=== PATIENT | male | born 1970 | race Caucasian/White ===

== ENCOUNTER 2019-09-01 21:05 | Inpatient (IN) | payer SELFPAY ==
[2019-09-01] MEDS ORDERED: LORAZEPAM INJ 2 MG/1 ML VIAL IV ONE (21:33)
[2019-09-01] MEDS ORDERED: NORMAL SALINE 1000 ML 1,000 ML IV ONE (21:36)
--- NOTE | 2019-09-01 21:52 | ER Document Report ---
Entered by JOSE FERNANDO SCRIBE 09/01/192123 Acting as scribe for:SAMUEL SOUTH IV, MD ED General - General Chief Complaint: Altered Mental Status Stated Complaint: ALTERED MENTAL STATUS Time Seen by Provider: 09/01/19 21:21 Mode of Arrival: Medic Information source: Emergency Med Personnel Notes: This 49 year old male patient brought in by EMS from [facility] presents to the ED today with complaints of altered mental status that occurred just prior to arrival. Per ED nurse, EMS reports that the patient received 5 mg Haldol, 2 mg Ativan, and 25 mg Benadryl at 1620 today. ED nurse also reports that the staff at [facility] are concerned about the patient's abdominal hernia. Patient denies any pain. Patient was transferred to [facility] on IVC paperwork per Shaka Mayo, [facility]. Patient reportedly tested positive for amphetamine in triage at [facility] yesterday. According to Maria Esther, the patient has a past medical history of methamphetamine psychosis, ETOH abuse, and seizures (last 10+ years ago). Patient's medications include Keppra, Topamax, and blood pressure medications. - Related Data Allergies/Adverse Reactions: No Known Allergies Allergy (Unverified 09/01/19 21:22) Past Medical History - General Information source: [facility] Records - Social History Smoking Status: Current Every Day Smoker Cigarette use (# per day): Yes Chew tobacco use (# tins/day): No Smoking Education Provided: No Frequency of alcohol use: Heavy Drug Abuse: Methamphetamine Family History: Reviewed & Not Pertinent Patient has suicidal ideation: No Patient has homicidal ideation: No Review of Systems - Review of Systems Constitutional: No symptoms reported EENT: No symptoms reported Cardiovascular: No symptoms reported Respiratory: No symptoms reported Gastrointestinal: No symptoms reported Genitourinary: No symptoms reported Male Genitourinary: No symptoms reported Musculoskeletal: See HPI. denies: Muscle pain Skin: No symptoms reported Hematologic/Lymphatic: No symptoms reported Neurological/Psychological: See HPI, Other - Altered mental status -: Yes All other systems reviewed and negative Physical Exam - Vital signs Vitals: Temp 99.1 F 09/01/19 21:16 - General General appearance: Alert, Other - Confused In distress: None - Respiratory Respiratory status: No respiratory distress Chest status: Nontender Breath sounds: Normal Chest palpation: Normal - Cardiovascular Rhythm: Regular, Tachycardia Heart sounds: Normal auscultation Murmur: No Friction rub: No Gallop: None auscultated - Abdominal Inspection: Healed incision - Well healed midline abdominal incision noted, Other - Hernia noted to midline, nontender to palpation and normal bowel sounds auscultated Distension: No distension Bowel sounds: Normal Tenderness: Nontender - Abdomen soft Organomegaly: No organomegaly - Back Back: Normal, Nontender - Extremities General upper extremity: Normal inspection General lower extremity: Normal inspection - Neurological Neuro grossly intact: Yes - Psychological Associated symptoms: Confused - Skin Skin Temperature: Warm - to the touch Skin Moisture: Dry Skin Color: Normal Course - Vital Signs Vital signs: Temp Pulse Resp BP Pulse Ox 99.1 F 122 H 16 183/146 H 100 09/01/19 21:21 09/01/19 21:21 09/01/19 23:05 09/01/19 23:05 09/01/19 23:05 - Laboratory Result Diagrams: 09/01/19 21:40 09/01/19 21:40 Laboratory results interpreted by me: 09/01/19 09/01/19 09/01/19 21:40 21:40 21:40 RBC 3.70 L Hgb 12.6 L Hct 36.9 L MCV 100 H MCH 34.2 H RDW 14.8 H Plt Count 60 L [place] % (Auto) 18.0 H Potassium 3.2 L Glucose 156 H Total Bilirubin 2.8 H Direct Bilirubin 1.3 H AST 142 H ALT 70 H Alkaline Phosphatase 143 H Ammonia 54.6 H Salicylates < 1.0 L Acetaminophen < 10 L - Diagnostic Test Radiology reviewed: Reports reviewed - EKG Interpretation by Me Additional EKG results interpreted by me: 09/02/19 00:22 EKG obtained on 09/01/2019 at 2147 hrs. was interpreted by this MD. Findings: Sinus tachycardia, rate 112, normal axis, P waves proceed QRS complexes, QRS complexes appear narrow, there are no obvious patterns of ST segment elevation or depression present to suggest acute myocardial ischemia or infarction. Impression: Sinus tachycardia with nonspecific ST segments. - Consults dr. razia valdez Time consulted: 00:50 - dr. valdez agreed to admit the patient. he also ordered 10 mg valium iv and 50 mg atenolol po be given now to treat potential symptoms of alcohol withdrawal Reason for consultation: 09/02/19 00:51 ams, elevated ammonia level Consulted provider: will see as inpatient Discharge - Discharge Clinical Impression: Hyperammonemia Alcohol withdrawal Qualifiers: Complication of substance-induced condition: with delirium Qualified Code(s): F10.231 - Alcohol dependence with withdrawal delirium Condition: Good Disposition: ADMITTED INPATIENT Admitting Provider: Harman (Hospitalist) Unit Admitted: Medical Floor I personally performed the services described in the documentation, reviewed and edited the documentation which was dictated to the scribe in my presence, and it accurately records my words and actions.
[2019-09-01 22:23] LABS: ABSOLUTE BASOPHILS # (AUTO) 0.1 10^3/uL (0.0-0.2); ABSOLUTE EOSINOPHILS # (AUTO) 0.1 10^3/uL (0.0-0.6); ABSOLUTE LYMPHOCYTES (AUTO) 0.8 10^3/uL (0.5-4.7); ABSOLUTE NEUT (AUTO) 3.5 10^3/uL (1.7-8.2); BASOPHILS % (AUTO) 1.1 % (0-2); HEMATOCRIT 36.9 % (37.9-51.0); HEMOGLOBIN 12.6 g/dL (13.5-17.0); LYMPHOCYTES % (AUTO) 15.3 % (13-45); MEAN CORPUSCULAR HEMOGLOBIN 34.2 pg (27.0-33.4); MEAN CORPUSCULAR HGB CONC 34.3 g/dL (32.0-36.0); MEAN CORPUSCULAR VOLUME 100 fl (80-97); RED CELL DISTRIBUTION WIDTH 14.8 % (11.5-14.0); SEGMENTED NEUTROPHILS % (AUTO) 64.6 % (42-78); TOTAL CELLS COUNTED % (AUTO) 100 %; WHITE BLOOD COUNT 5.4 10^3/uL (4.0-10.5)
[2019-09-01] MEDS ORDERED: DIPHENHYDRAMINE HCL 50 MG/ML VIAL IV ONE (22:24)
[2019-09-01] MEDS ORDERED: HALOPERIDOL LACTATE INJ 5 MG/1 ML VIAL IM ONE (22:25)
[2019-09-01 22:26] LABS: ALBUMIN 3.5 g/dL (3.5-5.0); ALKALINE PHOSPHATASE 143 U/L (38-126); ANION GAP 10 (5-19); ASPARTATE AMINO TRANSFERASE 142 U/L (17-59); BILIRUBIN,DIRECT 1.3 mg/dL (0.0-0.4); BILIRUBIN,TOTAL 2.8 mg/dL (0.2-1.3); BLOOD UREA NITROGEN 11 mg/dL (7-20); CALCIUM 9.3 mg/dL (8.4-10.2); CARBON DIOXIDE 22 mmol/L (22-30); CHLORIDE 105 mmol/L (98-107); GLUCOSE 156 mg/dL (75-110); POTASSIUM 3.2 mmol/L (3.6-5.0); TOTAL PROTEIN 7.6 g/dL (6.3-8.2)
[2019-09-01 22:27] LABS: ACETAMINOPHEN < 10 ug/mL (10-30); ALCOHOL < 10 mg/dL (NONE DETECTED); SALICYLATE < 1.0 mg/dL (2.0-20.0)
[2019-09-01 22:40] LABS: PLATELET COUNT 60 10^3/uL (150-450)
[2019-09-01] MEDS ORDERED: LACTULOSE SYRUP 20 GM/30 ML UDCUP PO ONE (23:40)
--- NOTE | 2019-09-02 00:07 | RADIOLOGY REPORT (SQ) ---
EXAM DESCRIPTION: CT HEAD WITHOUT IV CONTRAST COMPLETED DATE/TME: 09/01/2019 21:34 CLINICAL HISTORY: 49 years, Male, ams COMPARISON: None. TECHNIQUE: 199 Images stored on PACS. All CT scanners at this facility use dose modulation, iterative reconstruction, and/or weight based dosing when appropriate to reduce radiation dose to as low as reasonably achievable (ALARA). [facility]: Dose Right [facility]: CareDose [facility]: Dose Right [facility]: Teradose 4D [facility]: [employer] LIMITATIONS: None. FINDINGS: The globes are intact. The paranasal sinuses and mastoid air cells are well aerated. No displaced or depressed skull fracture. No intra or extra-axial hemorrhage. CT is limited for evaluation of acute infarct. No CT evidence for large or territorial acute infarct. No mass. No midline shift IMPRESSION: No acute intracranial abnormality TECHNICAL DOCUMENTATION: Quality ID # 436: Final reports with documentation of one or more dose reduction techniques (e.g., Automated exposure control, adjustment of the mA and/or kV according to patient size, use of iterative reconstruction technique) copyright 2011 [employer]- All Rights Reserved
--- NOTE | 2019-09-02 00:07 | RADIOLOGY REPORT (SQ) ---
AP Portable chest: 09/01/2019 11:05 PM CDT History: 49-year old patient with altered mental status. Comparison: None available Findings: The cardiomediastinal silhouette is enlarged. No pneumothorax is seen. No discrete pleural effusion is apparent. No acute airspace opacities are seen. Mild interstitial prominence is seen. Impression: There is mild interstitial prominence which may reflect developing edema.
[2019-09-02] MEDS ORDERED: DIAZEPAM INJ 10 MG/2 ML DISP.SYRIN IV ONE (00:49)
[2019-09-02] MEDS ORDERED: ATENOLOL 50 MG TABLET PO ONE (00:49)
[2019-09-02 01:14] LABS: APPEARANCE,URINE CLEAR; BILIRUBIN,URINE NEGATIVE (NEGATIVE); COLOR,URINE AMBER; GLUCOSE, URINE NEGATIVE (NEGATIVE); KETONES,URINE NEGATIVE (NEGATIVE); PROTEIN,URINE NEGATIVE (NEGATIVE); URINE SPECIFIC GRAVITY 1.015
[2019-09-02] MEDS ORDERED: LEVALBUTEROL HCL NEB 0.63 MG/3 ML AMPUL NEB PRN (01:20)
[2019-09-02] MEDS ORDERED: MAG HYDROX/AL HYDROX/SIMETH SUSP 30 ML UDCUP PO PRN (01:20)
[2019-09-02] MEDS ORDERED: MAGNESIUM HYDROXIDE SUSP 30 ML UDCUP PO PRN (01:20)
[2019-09-02] MEDS ORDERED: DIAZEPAM INJ 10 MG/2 ML DISP.SYRIN IV PRN (01:25)
[2019-09-02] MEDS ORDERED: NICOTINE 21 MG/24 HR PATCH.TD24 TD PRN (01:25)
[2019-09-02] MEDS ORDERED: GUAIFENESIN SYRP 200 MG/10 ML UDC PO PRN (01:25)
--- NOTE | 2019-09-02 02:53 | PDOC H&P ---
History of Present Illness Admission Date/PCP: 09/02/2019 00:49 No local PCP Patient complains of: Altered mental status History of Present Illness: RAF HOOK is a 49 year old male who presented to the emergency room via EMS from the [facility] due to altered mental status beginning a few hours prior to his emergency room presentation. Patient was given Haldol, Ativan and Benadryl at [facility] without improvement resulting in his transfer to the emergency room. Patient was placed at [facility] from [facility] with IVC paperwork. Upon his arrival at [facility] his urine tested positive for amphetamine. Patient is currently agitated, confused and actively hallucinating thus being unable to contribute to his medical care. The patient has a known methamphetamine abuse history as well as a severe alcohol and tobacco abuse/addiction history. Patient reportedly had a seizure more than 10 years ago under uncertain circumstances. In the emergency room the patient was found to be confused and agitated with obvious acute hallucinations. His serum ammonia was 54 with elevated LFTs and his heart rate was 115 with an elevated blood pressure. CT scan of his head was unremarkable as was remainder of his evaluation. He was subsequently admitted to the hospital for further evaluation and treatment. Past Medical History Past Medical History: Patient is unable to provide historical input for his medical record therefore the information presented here is obtained from the best available reliable source. Cardiac Medical History: Reports: Hypertension Pulmonary Medical History: Reports: Other - No available history EENT Medical History: Reports: Other - No available history Neurological Medical History: Reports: Seizures, Other Endocrine Medical History: Reports: Other - No available history Renal/ Medical History: Reports: Other - No available history Malignancy Medical History: Reports: Other - No available history GI Medical History: Reports: Other - No available history Musculoskeltal Medical History: Reports: Other - No available history Skin Medical History: Reports: None Psychiatric Medical History: Reports: Alcohol Dependency, Substance Abuse, To bacco Dependency Traumatic Medical History: Reports: Other - No available history Hematology: Reports: Other - No available history Infectious Medical History: Reports: Other Past Surgical History Past Surgical History: Patient is unable to provide historical input for his medical record therefore the information presented here is obtained from the best available reliable source. Past Surgical History: Reports: None Social History Information Source: Emergency Med Personnel, [facility] Records, Outside Facility Records Lives with: Other - [facility] Smoking Status: Current Every Day Smoker Electronic Cigarette use?: No Frequency of Alcohol Use: Heavy Hx Recreational Drug Use: Yes Drugs: Other Hx Prescription Drug Abuse: No Past Social History Note: Patient is unable to provide historical input for his medical record therefore the information presented here is obtained from the best available reliable sour ce. - Advance Directive Resuscitation Status: Full Code Surrogate healthcare decision maker:: Kelsey Hook Family History Family History: Other - Unable to obtain Family History: Patient is unable to provide historical input for his medical record therefore the information presented here is obtained from the best available reliable source. Parental Family History Reviewed: No Children Family History Reviewed: No Sibling(s) Family History Reviewed.: No Medication/Allergy Allergies/Adverse Reactions: No Known Allergies Allergy (Unverified 09/01/19 21:22) Review of Systems ROS unobtainable: Due to mental status - Patient is unable to provide input for his medical record due to his acute alcohol withdrawal with psychosis Physical Exam Vital Signs: Temp Pulse Resp BP Pulse Ox 99.1 F 122 H 16 183/146 H 100 09/01/19 21:21 09/01/19 21:21 09/01/19 23:05 09/01/19 23:05 09/01/19 23:05 Intake & Output 08/31/19 09/01/19 09/02/19 23:59 23:59 23:59 Intake Total 1000 Balance 1000 Weight 80.739 kg General appearance: PRESENT: no acute distress - After receiving 10 mg of Valium IV in the ER just prior to my evaluation, disheveled, other - Detached from current situation Head exam: PRESENT: atraumatic, normocephalic Eye exam: PRESENT: conjunctiva pink. ABSENT: conjunctival injection, scleral icterus Ear exam: PRESENT: normal external ear exam. ABSENT: bleeding, drainage Mouth exam: PRESENT: dry mucosa, neck supple Neck exam: ABSENT: thyromegaly, tracheal deviation Respiratory exam: PRESENT: clear to auscultation jose carlos, symmetrical, unlabored Cardiovascular exam: PRESENT: RRR, tachycardia. ABSENT: clicks, gallop, rubs Pulses: PRESENT: normal radial pulses, normal dorsalis pedis pul Vascular exam: PRESENT: normal capillary refill. ABSENT: pallor GI/Abdominal exam: PRESENT: normal bowel sounds, organolmegaly - Hepatomegaly noted on less than optimal exam, soft Rectal exam: PRESENT: deferred Extremities exam: ABSENT: joint swelling, pedal edema Musculoskeletal exam: ABSENT: deformity, dislocation Neurological exam: PRESENT: altered - Confused and agitated, other - Actively experiencing visual hallucinations, mild fine peripheral tremor Psychiatric exam: PRESENT: agitated, other - Confused and actively hallucinating Focused psych exam: PRESENT: psychomotor agitation, restlessness, other - Visual hallucination Skin exam: PRESENT: dry, intact, warm. ABSENT: jaundice, rash, urticaria Results Laboratory Results: 09/01/19 21:40 09/01/19 21:40 09/01/19 09/01/19 09/01/19 21:40 21:40 21:40 WBC 5.4 RBC 3.70 L Hgb 12.6 L Hct 36.9 L MCV 100 H MCH 34.2 H MCHC 34.3 RDW 14.8 H Plt Count 60 L Seg Neutrophils % 64.6 Sodium 137.0 Potassium 3.2 L Chloride 105 Carbon Dioxide 22 Anion Gap 10 BUN 11 Creatinine 0.64 Est GFR ( Amer) > 60 Glucose 156 H Calcium 9.3 Total Bilirubin 2.8 H AST 142 H Alkaline Phosphatase 143 H Ammonia 54.6 H Total Protein 7.6 Albumin 3.5 Impressions: Head CT 09/01/19 21:34 IMPRESSION: No acute intracranial abnormality TECHNICAL DOCUMENTATION: Quality ID # 436: Final reports with documentation of one or more dose reduction techniques (e.g., Automated exposure control, adjustment of the mA and/or kV according to patient size, use of iterative reconstruction technique) copyright 2011 [employer]- All Rights Reserved Assessment and Plan - Diagnosis (1) Alcohol withdrawal delirium, acute, mixed level of activity Is this a current diagnosis for this admission?: Yes (2) Hypertension Qualifiers: Hypertension type: essential hypertension Qualified Code(s): I10 - Essential (primary) hypertension Is this a current diagnosis for this admission?: Yes (3) Tachycardia Is this a current diagnosis for this admission?: Yes (4) Visual hallucinations Is this a current diagnosis for this admission?: Yes (5) Alcoholic liver disease, unspecified Is this a current diagnosis for this admission?: Yes (6) Hepatic encephalopathy Is this a current diagnosis for this admission?: Yes (7) Polysubstance abuse Is this a current diagnosis for this admission?: Yes (8) Seizure disorder Is this a current diagnosis for this admission?: Yes - Plan Summary Summary: Patient be admitted to the medical floor where he will receive routine supportive and symptomatic cares. He will be treated with Valium 10 mg p.o. every 4 hours initially with available Valium 10 mg IV every hour as needed severe tremors/agitation. He will receive Thorazine 25 mg IV every 4 hours as needed for hallucinations. He will be treated with atenolol 50 mg p.o. twice daily. He will also receive thiamine 100 mg daily. His elevated serum ammonia will be treated with lactulose administered orally. He will be treated with a cardiac diet. CBCs, metabolic profiles, liver function studies, ammonia levels and magnesium levels will be obtained as needed. - Time Time Spent with patient: Less than 15 minutes Anticipated discharge: Other - Return to [facility] or other crisis center - Inpatient Certification Based on my medical assessment, after consideration of the patient's comorbidities, presenting symptoms, or acuity I expect that the services needed warrant INPATIENT care.: Yes I certify that my determination is in accordance with my understanding of Medicare's requirements for reasonable and necessary INPATIENT services [42 CFR 412.3e].: Yes Medical Necessity: Need Close Monitoring Due to Risk of Patient Decompensation, Need for Neurological Checks, Risk of Complication if Not Cared For in Hospital
[2019-09-02] MEDS: DIAZEPAM 5 MG TABLET PO SCH ×6 (03:20→23:45)
[2019-09-02 03:21] LABS: URINE BARBITURATES SCREEN NEGATIVE; URINE BENZODIAZEPINES SCREEN NEGATIVE; URINE COCAINE SCREEN NEGATIVE; URINE MARIJUANA (THC) SCREEN NEGATIVE; URINE METHADONE SCREEN NEGATIVE; URINE PHENCYCLIDINE SCREEN NEGATIVE
[2019-09-02 03:34] LABS: URINE AMPHETAMINES SCREEN UNCONFIRMED POSITIVE
[2019-09-02] MEDS: FAMOTIDINE 20 MG TABLET PO SCH ×2 (09:18→21:07)
[2019-09-02] MEDS: DOCUSATE SODIUM 100 MG CAPSULE PO SCH ×2 (09:19→17:07)
--- NOTE | 2019-09-02 10:16 | EKG REPORT ---
SEVERITY:- ABNORMAL ECG - SINUS TACHYCARDIA LVH WITH SECONDARY REPOLARIZATION ABNORMALITY ANTERIOR Q WAVES, POSSIBLY DUE TO LVH : Confirmed by: Abigail Davila MD 02-Sep-2019 10:15:31
--- NOTE | 2019-09-02 15:09 | Progress Note ---
Provider Note Provider Note: Late morning admission by Dr. Hammer overnight. Patient seen and examined Discussed the case with the psychiatrist Dr. Cross The patient will still be under the IVC of his facility for a total of 10 days. He stated we do not need to reinstate this here. He recommended that we try to use Haldol 5 mg IV 3 times daily as needed agitation or we can use Zyprexa if QTC is prolonged however Zyprexa along with benzos may reduce respiratory drive more than other antipsychotics. Psychiatry states that they will take patient back under their care once patient is medically cleared to do so. Continue current interventions. Patient is still somnolent and extremely confused.
[2019-09-03] MEDS: DIAZEPAM 5 MG TABLET PO SCH ×4 (03:45→16:32)
[2019-09-03 06:34] LABS: HEMATOCRIT 36.9 % (37.9-51.0); HEMOGLOBIN 12.8 g/dL (13.5-17.0); MEAN CORPUSCULAR HEMOGLOBIN 34.6 pg (27.0-33.4); MEAN CORPUSCULAR HGB CONC 34.7 g/dL (32.0-36.0); MEAN CORPUSCULAR VOLUME 100 fl (80-97); RED CELL DISTRIBUTION WIDTH 14.6 % (11.5-14.0); WHITE BLOOD COUNT 4.9 10^3/uL (4.0-10.5)
[2019-09-03 06:54] LABS: ALKALINE PHOSPHATASE 110 U/L (38-126); ASPARTATE AMINO TRANSFERASE 101 U/L (17-59); BILIRUBIN,DIRECT 0.9 mg/dL (0.0-0.4); BILIRUBIN,TOTAL 2.6 mg/dL (0.2-1.3); BLOOD UREA NITROGEN 9 mg/dL (7-20); CALCIUM 8.5 mg/dL (8.4-10.2); GLUCOSE 98 mg/dL (75-110); POTASSIUM 3.2 mmol/L (3.6-5.0); TOTAL PROTEIN 6.8 g/dL (6.3-8.2)
[2019-09-03 06:55] LABS: PLATELET COUNT 73 10^3/uL (150-450)
[2019-09-03 07:00] LABS: CARBON DIOXIDE 27 mmol/L (22-30); CHLORIDE 107 mmol/L (98-107)
[2019-09-03 07:01] LABS: ANION GAP 4 (5-19)
[2019-09-03] MEDS: LACTULOSE SYRUP 20 GM/30 ML UDCUP PO SCH ×2 (09:59→22:18)
[2019-09-03] MEDS: FAMOTIDINE 20 MG TABLET PO SCH ×2 (09:59→22:18)
[2019-09-03] MEDS: DOCUSATE SODIUM 100 MG CAPSULE PO SCH ×2 (09:59→17:06)
--- NOTE | 2019-09-03 15:11 | PDOC PROGRESS REPORT ---
Subjective Progress Note for:: 09/03/19 Subjective:: Patient admitted yesterday morning for refractory substance withdrawal symptoms, sent from [place] psychiatric facility. He was given a large amount of IV Ativan and subsequently became calm. Both yesterday and today, during my encounter the patient does not have any idea where he is, why he is here, or the date. He does remember the president is Carolyn. He believes the year is 1919 despite me asking him multiple times and then coming back later in the day to ask him when he was more awake. He is alert and feeding himself at each meal. His LFTs have gone down but his ammonia has risen and I have started him on lactulose. HIV is negative and his hepatitis testing is pending. Per my discussion with the psychiatrist yesterday, he can return to the psychiatric facility once he is medically stabilized and not requiring high doses of antipsychotics or benzo diazepines to control his agitation. Patient cannot articulate any complaints today. Reason For Visit: ACUTE ALCOHOL WITHDRAWAL, ACUTE ENCEPHALOPATHY Physical Exam Vital Signs: Temp Pulse Resp BP Pulse Ox 98.8 F 85 18 148/86 H 100 09/03/19 11:57 09/03/19 11:57 09/03/19 11:57 09/03/19 11:57 09/03/19 11:57 Intake & Output 09/02/19 09/03/19 09/04/19 06:59 06:59 06:59 Intake Total 1000 980 360 Balance 1000 980 360 Weight 78.4 kg 78.3 kg General appearance: PRESENT: no acute distress, well-developed, well-nourished Head exam: PRESENT: atraumatic, normocephalic Eye exam: PRESENT: conjunctiva pink Mouth exam: PRESENT: moist Respiratory exam: PRESENT: clear to auscultation jose carlos. ABSENT: rales, rhonchi, wheezes Cardiovascular exam: PRESENT: RRR. ABSENT: diastolic murmur, rubs, systolic murmur GI/Abdominal exam: PRESENT: normal bowel sounds, soft. ABSENT: distended, guarding, mass, organolmegaly, rebound, tenderness Rectal exam: PRESENT: deferred Extremities exam: ABSENT: pedal edema Neurological exam: PRESENT: alert, awake, oriented to person. ABSENT: oriented to place, oriented to time, oriented to situation Psychiatric exam: PRESENT: appropriate affect, normal mood Skin exam: PRESENT: dry, intact, warm Results Laboratory Results: 09/03/19 06:20 09/03/19 06:20 09/03/19 09/03/19 09/03/19 06:20 06:20 06:20 WBC 4.9 RBC 3.70 L Hgb 12.8 L Hct 36.9 L MCV 100 H MCH 34.6 H MCHC 34.7 RDW 14.6 H Plt Count 73 L Sodium 137.9 Potassium 3.2 L Chloride 107 Carbon Dioxide 27 Anion Gap 4 L BUN 9 Creatinine 0.56 Est GFR ( Amer) > 60 Glucose 98 Calcium 8.5 Magnesium 2.0 Total Bilirubin 2.6 H AST 101 H Alkaline Phosphatase 110 Ammonia 85.4 H Total Protein 6.8 Albumin 3.0 L TSH 09/03/19 06:20 WBC RBC Hgb Hct MCV MCH MCHC RDW Plt Count Sodium Potassium Chloride Carbon Dioxide Anion Gap BUN Creatinine Est GFR ( Amer) Glucose Calcium Magnesium Total Bilirubin AST Alkaline Phosphatase Ammonia Total Protein Albumin TSH 2.23 Impressions: Head CT 09/01/19 21:34 IMPRESSION: No acute intracranial abnormality TECHNICAL DOCUMENTATION: Quality ID # 436: Final reports with documentation of one or more dose reduction techniques (e.g., Automated exposure control, adjustment of the mA and/or kV according to patient size, use of iterative reconstruction technique) copyright 2011 [employer]- All Rights Reserved Assessment and Plan - Diagnosis (1) Alcohol withdrawal delirium, acute, mixed level of activity Is this a current diagnosis for this admission?: Yes Plan: 09/03/2019 Patient is oriented only to himself and thinks he is at [facility] As needed IV Valium Lactulose for elevated ammonia Sent back to psychiatric facility once stabilized (2) Alcoholic liver disease, unspecified Is this a current diagnosis for this admission?: Yes (3) Hepatic encephalopathy Is this a current diagnosis for this admission?: Yes Plan: Elevated ammonia, recheck showed even higher Lactulose scheduled and should be titrated to effect of 1-2 soft bowel movements per day Hepatitis panel pending (4) Hypertension Qualifiers: Hypertension type: essential hypertension Qualified Code(s): I10 - Essential (primary) hypertension Is this a current diagnosis for this admission?: Yes Plan: Start clonidine which will help with BP and withdrawal (5) Polysubstance abuse Is this a current diagnosis for this admission?: Yes Plan: Counseled on cessation but doubt he understood any of it due to confusion/encephalopathy (6) Seizure disorder Is this a current diagnosis for this admission?: Yes Plan: Reportedly he has seizures due to alcohol withdrawal rather than actual epilepsy (7) Visual hallucinations Is this a current diagnosis for this admission?: Yes - Plan Summary Summary: Patient be admitted to the medical floor where he will receive routine supportive and symptomatic cares. He will be treated with Valium 10 mg p.o. every 4 hours initially with available Valium 10 mg IV every hour as needed severe tremors/agitation. He will receive Thorazine 25 mg IV every 4 hours as needed for hallucinations. He will be treated with atenolol 50 mg p.o. twice daily. He will also receive thiamine 100 mg daily. His elevated serum ammonia will be treated with lactulose administered orally. He will be treated with a cardiac diet. CBCs, metabolic profiles, liver function studies, ammonia levels and magnesium levels will be obtained as needed. - Time Time Spent with patient: 25-34 minutes Medications reviewed and adjusted accordingly: Yes Within: within 48 hours - Inpatient Certification Based on my medical assessment, after consideration of the patient's comorbidities, presenting symptoms, or acuity I expect that the services needed warrant INPATIENT care.: Yes I certify that my determination is in accordance with my understanding of Medicare's requirements for reasonable and necessary INPATIENT services [42 CFR 412.3e].: Yes Medical Necessity: Significant Comorbidiites Make Outpatient Treatment Too Risky, Need Close Monitoring Due to Risk of Patient Decompensation, Risk of Complication if Not Cared For in Hospital, Risk of Diagnosis Which Will Require Inpatient Eval/Care/Monitoring
[2019-09-03] MEDS ORDERED: DIAZEPAM 2 MG TABLET PO PRN (16:52)
[2019-09-03] MEDS ORDERED: CLONIDINE 0.1 MG/24 HR PATCH.TDWK TD SCH (17:00)
[2019-09-04 05:37] LABS: HEPATITS B SURFACE ANTIGEN Negative (Negative)
[2019-09-04 06:14] LABS: HEMATOCRIT 37.2 % (37.9-51.0); HEMOGLOBIN 12.9 g/dL (13.5-17.0); MEAN CORPUSCULAR HEMOGLOBIN 34.8 pg (27.0-33.4); MEAN CORPUSCULAR HGB CONC 34.7 g/dL (32.0-36.0); MEAN CORPUSCULAR VOLUME 100 fl (80-97); RED BLOOD COUNT 3.71 10^6/uL (4.35-5.55); RED CELL DISTRIBUTION WIDTH 14.3 % (11.5-14.0); WHITE BLOOD COUNT 4.6 10^3/uL (4.0-10.5)
[2019-09-04 06:19] LABS: ALKALINE PHOSPHATASE 101 U/L (38-126); ANION GAP 6 (5-19); ASPARTATE AMINO TRANSFERASE 91 U/L (17-59); BILIRUBIN,DIRECT 0.9 mg/dL (0.0-0.4); BILIRUBIN,TOTAL 2.4 mg/dL (0.2-1.3); BLOOD UREA NITROGEN 10 mg/dL (7-20); CALCIUM 8.6 mg/dL (8.4-10.2); CARBON DIOXIDE 23 mmol/L (22-30); CHLORIDE 109 mmol/L (98-107); GLUCOSE 98 mg/dL (75-110); POTASSIUM 3.6 mmol/L (3.6-5.0); TOTAL PROTEIN 6.9 g/dL (6.3-8.2)
[2019-09-04 06:49] LABS: PLATELET COUNT 76 10^3/uL (150-450)
[2019-09-04 07:07] LABS: HEPATITIS C VIRUS ANTIBODY <0.1 s/co ratio (0.0-0.9)
[2019-09-04] MEDS: CHOLECALCIFEROL (D3) 1,000 UNIT (25 MCG) TABLET PO SCH (09:30)
[2019-09-04] MEDS: LACTULOSE SYRUP 20 GM/30 ML UDCUP PO SCH ×2 (09:30→21:32)
[2019-09-04] MEDS: FAMOTIDINE 20 MG TABLET PO SCH ×2 (09:30→21:33)
[2019-09-04] MEDS: DOCUSATE SODIUM 100 MG CAPSULE PO SCH ×2 (09:30→17:05)
[2019-09-04] MEDS: VITAMIN B COMPLEX TABLET PO SCH (09:30)
[2019-09-04] MEDS: MULTIVITAMIN TABLET PO SCH (09:31)
[2019-09-04] MEDS: THIAMINE HCL 100 MG TABLET PO SCH (09:31)
[2019-09-04] MEDS: ACETAMINOPHEN 325 MG TABLET PO PRN ×2 (09:35→21:34)
--- NOTE | 2019-09-04 15:33 | PDOC DISCHARGE SUMMARY ---
Impression - Admit/DC Date/PCP Admission Date/Primary Care Provider: 09/02/19 01:01 Discharge Date: 09/04/19 - Discharge Diagnosis (1) Alcohol withdrawal delirium, acute, mixed level of activity Is this a current diagnosis for this admission?: Yes (2) Alcoholic liver disease, unspecified Is this a current diagnosis for this admission?: Yes (3) Hepatic encephalopathy Is this a current diagnosis for this admission?: Yes (4) Hypertension Is this a current diagnosis for this admission?: Yes (5) Polysubstance abuse Is this a current diagnosis for this admission?: Yes (6) Seizure disorder Is this a current diagnosis for this admission?: Yes (7) Visual hallucinations Is this a current diagnosis for this admission?: Yes - Assessment Summary: Patient be admitted to the medical floor where he will receive routine supportive and symptomatic cares. He will be treated with Valium 10 mg p.o. every 4 hours initially with available Valium 10 mg IV every hour as needed severe tremors/agitation. He will receive Thorazine 25 mg IV every 4 hours as needed for hallucinations. He will be treated with atenolol 50 mg p.o. twice daily. He will also receive thiamine 100 mg daily. His elevated serum ammonia will be treated with lactulose administered orally. He will be treated with a cardiac diet. CBCs, metabolic profiles, liver function studies, ammonia levels and magnesium levels will be obtained as needed. - Additional Information Resuscitation Status: Full Code Discharge Diet: As Tolerated Discharge Activity: Activity As Tolerated Prescriptions: Clonidine [Catapres-Tts 1 (0.1 mg/24 Hr) Transderm Patch] 1 each TD Mo@10 #30 patch.tdwk Lactulose [Cephulac Syrup 20 gm/30 ml Udcup] 10 gm PO Q12 #60 udc Multivitamin [Tab-A-Kandace (Multiple Vitamin) Tablet] 1 tab PO DAILY #30 tablet Thiamine HCl [Thiamine 100 mg Tablet] 100 mg PO DAILY #30 tablet Vitamin B Complex [Vitamin B Complex Tablet] 1 tab PO DAILY #30 tablet Cholecalciferol (Vitamin D3) [Vitamin D3 1000 Unit Tablet] 2,000 unit PO DAILY #30 tablet Home Medications: Cholecalciferol (Vitamin D3) [Vitamin D3 1000 Unit Tablet] 2,000 unit PO DAILY #30 tablet 09/04/19 Clonidine [Catapres-Tts 1 (0.1 mg/24 Hr) Transderm Patch] 1 each TD Mo@10 #30 patch.tdwk 09/04/19 Lactulose [Cephulac Syrup 20 gm/30 ml Udcup] 10 gm PO Q12 #60 udc 09/04/19 Multivitamin [Tab-A-Kandace (Multiple Vitamin) Tablet] 1 tab PO DAILY #30 tablet 09/04/19 Thiamine HCl [Thiamine 100 mg Tablet] 100 mg PO DAILY #30 tablet 09/04/19 Vitamin B Complex [Vitamin B Complex Tablet] 1 tab PO DAILY #30 tablet 09/04/19 History of Present Illiness History of Present Illness: Per admitting physician: "RAF FERNANDO is a 49 year old male who presented to the emergency room via EMS from the [facility] due to altered mental status beginning a few hours prior to his emergency room presentation. Patient was given Haldol, Ativan and Benadryl at [place] without improvement resulting in his transfer to the emergency room. Patient was placed at [place] from [facility] with IVC paperwork. Upon his arrival at [place] his urine tested positive for amphetamine. Patient is currently agitated, confused and actively hallucinating thus being unable to contribute to his medical care. The patient has a known methamphetamine abuse history as well as a severe alcohol and tobacco abuse/addiction history. Patient reportedly had a seizure more than 10 years ago under uncertain circumstances. In the emergency room the patient was found to be confused and agitated with obvious acute hallucinations. His serum ammonia was 54 with elevated LFTs and his heart rate was 115 with an elevated blood pressure. CT scan of his head was unremarkable as was remainder of his evaluation. He was subsequently admitted to the hospital for further evaluation and treatment." Hospital Course Hospital Course: Patient admitted for refractory alcohol and polysubstance withdrawal, requiring high doses of benzodiazepines on admission, later weaned down to only using these as needed. Patient completely calm but still oriented only to self. Started on oral lactulose for elevated ammonia which is now dropping. Started on appropriate vitamins. Cleared for discharge back to psychiatric facility. (1) Alcohol withdrawal delirium, acute, mixed level of activity Is this a current diagnosis for this admission?: Yes Plan: 09/03/2019 Patient is oriented only to himself and thinks he is at [facility] As needed IV Valium Lactulose for elevated ammonia Sent back to psychiatric facility after stabilized and calm (2) Alcoholic liver disease, unspecified Is this a current diagnosis for this admission?: Yes (3) Hepatic encephalopathy Is this a current diagnosis for this admission?: Yes Plan: Elevated ammonia, recheck showed even higher Lactulose scheduled and should be titrated to effect of 1-2 soft bowel movements per day Hepatitis panel pending (4) Hypertension Qualifiers: Hypertension type: essential hypertension Qualified Code(s): I10 - Essential (primary) hypertension Is this a current diagnosis for this admission?: Yes Plan: Start clonidine which will help with BP and withdrawal (5) Polysubstance abuse Is this a current diagnosis for this admission?: Yes Plan: Counseled on cessation but doubt he understood any of it due to confusion/encephalopathy (6) Seizure disorder Is this a current diagnosis for this admission?: Yes Plan: Reportedly he has seizures due to alcohol withdrawal rather than actual epilepsy (7) Visual hallucinations Is this a current diagnosis for this admission?: Yes Physical Exam Vital Signs: Temp Pulse Resp BP Pulse Ox 98.1 F 90 12 135/84 H 99 09/04/19 12:08 09/04/19 12:08 09/04/19 12:08 09/04/19 12:08 09/04/19 12:08 Intake & Output 09/03/19 09/04/19 09/05/19 06:59 06:59 06:59 Intake Total 980 720 Balance 980 720 Weight 78.3 kg 76 kg General appearance: PRESENT: no acute distress, well-developed, well-nourished Head exam: PRESENT: atraumatic, normocephalic Eye exam: PRESENT: conjunctiva pink Mouth exam: PRESENT: moist Respiratory exam: PRESENT: clear to auscultation jose carlos. ABSENT: rales, rhonchi, wheezes Cardiovascular exam: PRESENT: RRR. ABSENT: diastolic murmur, rubs, systolic murmur GI/Abdominal exam: PRESENT: normal bowel sounds, soft. ABSENT: distended, guarding, mass, organolmegaly, rebound, tenderness Neurological exam: PRESENT: alert, awake, oriented to person. ABSENT: oriented to place, oriented to time, oriented to situation Psychiatric exam: PRESENT: appropriate affect, normal mood Skin exam: PRESENT: dry, intact, warm Results Laboratory Results: WBC 4.6 10^3/uL (4.0-10.5) 09/04/19 05:43 RBC 3.71 10^6/uL (4.35-5.55) L 09/04/19 05:43 Hgb 12.9 g/dL (13.5-17.0) L 09/04/19 05:43 Hct 37.2 % (37.9-51.0) L 09/04/19 05:43 MCV 100 fl (80-97) H 09/04/19 05:43 MCH 34.8 pg (27.0-33.4) H 09/04/19 05:43 MCHC 34.7 g/dL (32.0-36.0) 09/04/19 05:43 RDW 14.3 % (11.5-14.0) H 09/04/19 05:43 Plt Count 76 10^3/uL (150-450) L 09/04/19 05:43 Lymph % (Auto) 15.3 % (13-45) 09/01/19 21:40 [place] % (Auto) 18.0 % (3-13) H 09/01/19 21:40 Eos % (Auto) 1.0 % (0-6) 09/01/19 21:40 Baso % (Auto) 1.1 % (0-2) 09/01/19 21:40 Absolute Neuts (auto) 3.5 10^3/uL (1.7-8.2) 09/01/19 21:40 Absolute Lymphs (auto) 0.8 10^3/uL (0.5-4.7) 09/01/19 21:40 Absolute Monos (auto) 1.0 10^3/uL (0.1-1.4) 09/01/19 21:40 Absolute Eos (auto) 0.1 10^3/uL (0.0-0.6) 09/01/19 21:40 Absolute Basos (auto) 0.1 10^3/uL (0.0-0.2) 09/01/19 21:40 Seg Neutrophils % 64.6 % (42-78) 09/01/19 21:40 Sodium 138.3 mmol/L (137-145) 09/04/19 05:43 Potassium 3.6 mmol/L (3.6-5.0) 09/04/19 05:43 Chloride 109 mmol/L (98-107) H 09/04/19 05:43 Carbon Dioxide 23 mmol/L (22-30) 09/04/19 05:43 Anion Gap 6 (5-19) 09/04/19 05:43 BUN 10 mg/dL (7-20) 09/04/19 05:43 Creatinine 0.58 mg/dL (0.52-1.25) 09/04/19 05:43 Est GFR ( Amer) > 60 (>60) 09/04/19 05:43 Est GFR (MDRD) Non-Af > 60 (>60) 09/04/19 05:43 Glucose 98 mg/dL (75-110) 09/04/19 05:43 Calcium 8.6 mg/dL (8.4-10.2) 09/04/19 05:43 Magnesium 2.0 mg/dL (1.6-2.3) 09/04/19 05:43 Total Bilirubin 2.4 mg/dL (0.2-1.3) H 09/04/19 05:43 Direct Bilirubin 0.9 mg/dL (0.0-0.4) H 09/04/19 05:43 Neonat Total Bilirubin Not Reportable 09/04/19 05:43 Neonat Direct Bilirubin Not Reportable 09/04/19 05:43 Neonat Indirect Bili Not Reportable 09/04/19 05:43 AST 91 U/L (17-59) H 09/04/19 05:43 ALT 56 U/L (<50) H 09/04/19 05:43 Alkaline Phosphatase 101 U/L (38-126) 09/04/19 05:43 Ammonia 68.6 umol/L (9-33) H 09/04/19 05:43 Total Protein 6.9 g/dL (6.3-8.2) 09/04/19 05:43 Albumin 3.0 g/dL (3.5-5.0) L 09/04/19 05:43 Vitamin B12 814.0 pg/mL (239-931) 09/02/19 11:16 Folate 13.70 ng/mL (>2.76) 09/02/19 11:16 TSH 2.23 uIU/mL (0.47-4.68) 09/03/19 06:20 Urine Color FAZAL 09/02/19 00:45 Urine Appearance CLEAR 09/02/19 00:45 Urine pH 6.0 (5.0-9.0) 09/02/19 00:45 Ur Specific [place] 1.015 09/02/19 00:45 Urine Protein NEGATIVE mg/dL (NEGATIVE) 09/02/19 00:45 Urine Glucose (UA) NEGATIVE mg/dL (NEGATIVE) 09/02/19 00:45 Urine Ketones NEGATIVE mg/dL (NEGATIVE) 09/02/19 00:45 Urine Blood NEGATIVE (NEGATIVE) 09/02/19 00:45 Urine Nitrite (Reflex) NEGATIVE (NEGATIVE) 09/02/19 00:45 Urine Bilirubin NEGATIVE (NEGATIVE) 09/02/19 00:45 Urine Urobilinogen 4.0 mg/dL (<2.0) H 09/02/19 00:45 Leukocyte Esterase Rfl NEGATIVE (NEGATIVE) 09/02/19 00:45 Urine RBC (Auto) 1 /HPF 09/02/19 00:45 Urine WBC (Reflex) 1 /HPF 09/02/19 00:45 Urine Mucus (Auto) FEW /LPF 09/02/19 00:45 Urine Ascorbic Acid NEGATIVE (NEGATIVE) 09/02/19 00:45 Salicylates < 1.0 mg/dL (2.0-20.0) L 09/01/19 21:40 Urine Opiates Screen NEGATIVE 09/02/19 00:45 Urine Methadone Screen NEGATIVE 09/02/19 00:45 Acetaminophen < 10 ug/mL (10-30) L 09/01/19 21:40 Ur Barbiturates Screen NEGATIVE 09/02/19 00:45 Ur Phencyclidine Scrn NEGATIVE 09/02/19 00:45 Ur Amphetamines Screen UNCONFIRMED POSITIVE 09/02/19 00:45 U Benzodiazepines Scrn NEGATIVE 09/02/19 00:45 Urine Cocaine Screen NEGATIVE 09/02/19 00:45 U Marijuana (THC) Screen NEGATIVE 09/02/19 00:45 Serum Alcohol < 10 mg/dL (NONE DETECTED) 09/01/19 21:40 Hepatitis A IgM Ab Negative (Negative) 09/02/19 11:16 Hep Bs Antigen Negative (Negative) 09/02/19 11:16 Hep B Core IgM Ab Negative (Negative) 09/02/19 11:16 Hepatitis C Antibody <0.1 s/co ratio (0.0-0.9) 09/02/19 11:16 HIV 1&2 Antibody NEGATIVE (NEGATIVE) 09/02/19 11:16 Impressions: Head CT 09/01/19 21:34 IMPRESSION: No acute intracranial abnormality TECHNICAL DOCUMENTATION: Quality ID # 436: Final reports with documentation of one or more dose reduction techniques (e.g., Automated exposure control, adjustment of the mA and/or kV according to patient size, use of iterative reconstruction technique) copyright 2011 [employer]- All Rights Reserved Plan Time Spent: Greater than 30 Minutes Stroke Is this a Stroke Patient?: No Acute Heart Failure - Is this a Heart Failure Patient?: No
[2019-09-05 06:02] LABS: HEMATOCRIT 39.1 % (37.9-51.0); HEMOGLOBIN 13.4 g/dL (13.5-17.0); MEAN CORPUSCULAR HEMOGLOBIN 34.5 pg (27.0-33.4); MEAN CORPUSCULAR HGB CONC 34.2 g/dL (32.0-36.0); MEAN CORPUSCULAR VOLUME 101 fl (80-97); RED BLOOD COUNT 3.87 10^6/uL (4.35-5.55); RED CELL DISTRIBUTION WIDTH 14.2 % (11.5-14.0); WHITE BLOOD COUNT 4.2 10^3/uL (4.0-10.5)
[2019-09-05 06:15] LABS: ALKALINE PHOSPHATASE 104 U/L (38-126); ANION GAP 6 (5-19); ASPARTATE AMINO TRANSFERASE 83 U/L (17-59); BILIRUBIN,DIRECT 0.6 mg/dL (0.0-0.4); BILIRUBIN,TOTAL 1.9 mg/dL (0.2-1.3); BLOOD UREA NITROGEN 9 mg/dL (7-20); CALCIUM 8.8 mg/dL (8.4-10.2); CARBON DIOXIDE 25 mmol/L (22-30); CHLORIDE 109 mmol/L (98-107); GLUCOSE 100 mg/dL (75-110); TOTAL PROTEIN 6.9 g/dL (6.3-8.2)
[2019-09-05 06:29] LABS: PLATELET COUNT 97 10^3/uL (150-450)
[2019-09-05] MEDS: DOCUSATE SODIUM 100 MG CAPSULE PO SCH (09:18)
[2019-09-05] MEDS: LACTULOSE SYRUP 20 GM/30 ML UDCUP PO SCH (09:18)
[2019-09-05] MEDS: MULTIVITAMIN TABLET PO SCH (09:19)
[2019-09-05] MEDS: THIAMINE HCL 100 MG TABLET PO SCH (09:19)
[2019-09-05] MEDS: VITAMIN B COMPLEX TABLET PO SCH (09:19)
[2019-09-05] MEDS: CHOLECALCIFEROL (D3) 1,000 UNIT (25 MCG) TABLET PO SCH (09:19)
[2019-09-05] MEDS: FAMOTIDINE 20 MG TABLET PO SCH (09:19)
[2019-09-05 12:09] VITALS: BP 132/74
--- NOTE | 2019-09-05 12:39 | PDOC PROGRESS REPORT ---
Subjective Progress Note for:: 09/05/19 Subjective:: Patient admitted yesterday morning for refractory substance withdrawal symptoms, sent from [place] [facility] facility. He was given a large amount of IV Ativan and subsequently became calm. Both yesterday and today, during my encounter the patient does not have any idea where he is, why he is here, or the date. He does remember the president is Carolyn. He believes the year is 1919 despite me asking him multiple times and then coming back later in the day to ask him when he was more awake. He is alert and feeding himself at each meal. His LFTs have gone down but his ammonia has risen and I have started him on lactulose. HIV is negative and his hepatitis testing is pending. Per my discussion with the psychiatrist yesterday, he can return to the psychiatric facility once he is medically stabilized and not requiring high doses of antipsychotics or benzo diazepines to control his agitation. Patient cannot articulate any complaints today. 09/05/2019 I discharged the patient yesterday but the psychiatric facility did not accept him back for an unknown reason. Reportedly, they may have wanted her psychiatrist to speak to me though this was never communicated to me throughout the patient's stay here. I have been told by the psychiatrist that the patient would be accepted back whenever we felt it was appropriate and his IVC would still be valid for up to 10 days. I spoke with the psychiatrist today again who stated he would take care of everything to have the patient taken back today. He did not voice any concerns about this transition. Reason For Visit: ACUTE ALCOHOL WITHDRAWAL, ACUTE ENCEPHALOPATHY Physical Exam Vital Signs: Temp Pulse Resp BP Pulse Ox 98.2 F 81 16 132/74 H 98 09/05/19 11:10 09/05/19 11:10 09/05/19 11:10 09/05/19 11:10 09/05/19 11:10 Intake & Output 09/04/19 09/05/19 09/06/19 06:59 06:59 06:59 Intake Total 720 1080 460 Balance 720 1080 460 Weight 76 kg 75.8 kg General appearance: PRESENT: no acute distress, well-developed, well-nourished Head exam: PRESENT: atraumatic, normocephalic Eye exam: PRESENT: conjunctiva pink Respiratory exam: PRESENT: clear to auscultation jose carlos. ABSENT: rales, rhonchi, wheezes Cardiovascular exam: PRESENT: RRR. ABSENT: diastolic murmur, rubs, systolic murmur GI/Abdominal exam: PRESENT: normal bowel sounds, soft. ABSENT: distended, guarding, mass, organolmegaly, rebound, tenderness Neurological exam: PRESENT: alert, altered, awake, oriented to person Psychiatric exam: PRESENT: appropriate affect Skin exam: PRESENT: dry, intact, warm Results Laboratory Results: 09/05/19 05:40 09/05/19 05:40 09/05/19 09/05/19 09/05/19 05:40 05:40 05:40 WBC 4.2 RBC 3.87 L Hgb 13.4 L Hct 39.1 MCV 101 H MCH 34.5 H MCHC 34.2 RDW 14.2 H Plt Count 97 L Sodium 139.5 Potassium 4.0 Chloride 109 H Carbon Dioxide 25 Anion Gap 6 BUN 9 Creatinine 0.57 Est GFR ( Amer) > 60 Glucose 100 Calcium 8.8 Magnesium 2.0 Total Bilirubin 1.9 H AST 83 H Alkaline Phosphatase 104 Ammonia 54.1 H Total Protein 6.9 Albumin 3.0 L Impressions: Head CT 09/01/19 21:34 IMPRESSION: No acute intracranial abnormality TECHNICAL DOCUMENTATION: Quality ID # 436: Final reports with documentation of one or more dose reduction techniques (e.g., Automated exposure control, adjustment of the mA and/or kV according to patient size, use of iterative reconstruction technique) copyright 2011 [employer]- All Rights Reserved Assessment and Plan - Diagnosis (1) Alcohol withdrawal delirium, acute, mixed level of activity Is this a current diagnosis for this admission?: Yes (2) Alcoholic liver disease, unspecified Is this a current diagnosis for this admission?: Yes (3) Hepatic encephalopathy Is this a current diagnosis for this admission?: Yes (4) Hypertension Qualifiers: Hypertension type: essential hypertension Qualified Code(s): I10 - Essential (primary) hypertension Is this a current diagnosis for this admission?: Yes (5) Polysubstance abuse Is this a current diagnosis for this admission?: Yes (6) Seizure disorder Is this a current diagnosis for this admission?: Yes (7) Visual hallucinations Is this a current diagnosis for this admission?: Yes - Plan Summary Summary: No significant changes from yesterday to today. Patient was discharged yesterday and remained in the hospital for an unknown reason. I spoke with the psychiatrist who stated the patient is accepted back to their facility anytime that we would like to send him. I prescribed him vitamins and lactulose. - Time Time Spent with patient: 15-24 minutes Medications reviewed and adjusted accordingly: Yes Anticipated discharge: Other Within: within 24 hours
== END 2019-09-05 15:39 | DRG 897 ==
LOC: ER 21:05 → EH 09-02 01:01 → 4W 09-02 02:49
PROVIDERS: ADMIT Emergency Medicine; ATTEND Internal Medicine
DX: F10.231 Alcohol dependence with withdrawal delirium (principal); F10.251 Alcohol dependence with alcohol-induced psychotic disorder with hallucinations; K70.40 Alcoholic hepatic failure without coma; I10 Essential (primary) hypertension; F15.10 Other stimulant abuse, uncomplicated; F17.210 Nicotine dependence, cigarettes, uncomplicated; K46.9 Unspecified abdominal hernia without obstruction or gangrene
CPT/HCPCS: 36415; 70450; 71045; 80048; 80053; 80074; 80076; 80307; 81001; 82140; 82607; 82746; 83735; 84443; 85025; 85027; 86701; 93005; 93010; 96361; 96372; 96374; 96375; 99285; J1200; J1630; J2060; J3360; J3490; J7030

== ENCOUNTER 2019-09-23 14:07 | Emergency (ER) | payer OTHER ==
--- NOTE | 2019-09-23 14:34 | ER Document Report ---
ED Medical Screen (RME) - General Stated Complaint: MEDICAL CLEARANCE Time Seen by Provider: 09/23/19 14:29 Mode of Arrival: Ambulatory Information source: Patient Notes: 49-year-old male with history of seizures and alcohol abuse presents today for medical clearance so he can go to [facility]. Patient appears to be intoxicated. Patient also has jean marie on the top of his scalp after he had a seizure last week and fell down some steps. After he was evaluated here for his fall and seizure he went to [place] but checked himself out. No complaints of fever vomiting diarrhea. Patient is here for medical clearance. He reports he has had about 3 beers to drink today. I have greeted and performed a rapid initial assessment of this patient. A comprehensive ED assessment and evaluation of the patient, analysis of test results and completion of the medical decision making process will be conducted by additional ED providers. - Related Data Allergies/Adverse Reactions: No Known Allergies Allergy (Verified 09/23/19 14:29) Past Medical History - Past Medical History Cardiac Medical History: Reports: Hx Hypertension Neurological Medical History: Reports: Hx Seizures Psychiatric Medical History: Comment Only: Hx Depression - unable to assess Physical Exam - Vital signs Vitals: Temp Pulse Resp BP Pulse Ox 98.7 F 102 H 16 153/91 H 94 09/23/19 14:12 09/23/19 14:12 09/23/19 14:12 09/23/19 14:12 09/23/19 14:12 Course - Vital Signs Vital signs: Temp Pulse Resp BP Pulse Ox 98.7 F 102 H 16 153/91 H 94 09/23/19 14:12 09/23/19 14:12 09/23/19 14:12 09/23/19 14:12 09/23/19 14:12
[2019-09-23 15:38] LABS: ABSOLUTE BASOPHILS # (AUTO) 0.1 10^3/uL (0.0-0.2); ABSOLUTE EOSINOPHILS # (AUTO) 0.1 10^3/uL (0.0-0.6); ABSOLUTE LYMPHOCYTES (AUTO) 1.6 10^3/uL (0.5-4.7); ABSOLUTE MONOCYTES (AUTO) 0.6 10^3/uL (0.1-1.4); ABSOLUTE NEUT (AUTO) 4.6 10^3/uL (1.7-8.2); BASOPHILS % (AUTO) 0.9 % (0-2); EOSINOPHILS % (AUTO) 1.2 % (0-6); HEMATOCRIT 39.4 % (37.9-51.0); HEMOGLOBIN 13.7 g/dL (13.5-17.0); LYMPHOCYTES % (AUTO) 22.6 % (13-45); MEAN CORPUSCULAR HGB CONC 34.8 g/dL (32.0-36.0); MEAN CORPUSCULAR VOLUME 98 fl (80-97); MONOCYTES % (AUTO) 8.9 % (3-13); RED BLOOD COUNT 4.03 10^6/uL (4.35-5.55); RED CELL DISTRIBUTION WIDTH 14.2 % (11.5-14.0); SEGMENTED NEUTROPHILS % (AUTO) 66.4 % (42-78); TOTAL CELLS COUNTED % (AUTO) 100 %; WHITE BLOOD COUNT 6.9 10^3/uL (4.0-10.5)
[2019-09-23 15:39] LABS: APPEARANCE,URINE CLEAR; BILIRUBIN,URINE NEGATIVE (NEGATIVE); COLOR,URINE YELLOW; GLUCOSE, URINE NEGATIVE (NEGATIVE); KETONES,URINE NEGATIVE (NEGATIVE); LEUKOCYTE ESTERASE,URINE NEGATIVE (NEGATIVE); NITRITE,URINE NEGATIVE (NEGATIVE); PROTEIN,URINE NEGATIVE (NEGATIVE); URINE SPECIFIC GRAVITY 1.008
[2019-09-23 15:54] LABS: ALBUMIN 3.6 g/dL (3.5-5.0); ALKALINE PHOSPHATASE 158 U/L (38-126); ANION GAP 8 (5-19); ASPARTATE AMINO TRANSFERASE 86 U/L (17-59); BILIRUBIN,DIRECT 0.2 mg/dL (0.0-0.4); BILIRUBIN,TOTAL 1.1 mg/dL (0.2-1.3); BLOOD UREA NITROGEN 6 mg/dL (7-20); CARBON DIOXIDE 24 mmol/L (22-30); CHLORIDE 109 mmol/L (98-107); GLUCOSE 102 mg/dL (75-110); POTASSIUM 4.2 mmol/L (3.6-5.0); TOTAL PROTEIN 7.7 g/dL (6.3-8.2)
[2019-09-23 15:55] LABS: ACETAMINOPHEN < 10 ug/mL (10-30); SALICYLATE < 1.0 mg/dL (2.0-20.0); URINE AMPHETAMINES SCREEN NEGATIVE; URINE BENZODIAZEPINES SCREEN NEGATIVE; URINE COCAINE SCREEN NEGATIVE; URINE MARIJUANA (THC) SCREEN NEGATIVE; URINE PHENCYCLIDINE SCREEN NEGATIVE
[2019-09-23 15:56] LABS: PLATELET COUNT 57 10^3/uL (150-450); URINE BARBITURATES SCREEN NEGATIVE
[2019-09-23 15:57] LABS: URINE METHADONE SCREEN NEGATIVE
[2019-09-23 16:04] LABS: ALCOHOL 399 mg/dL (NONE DETECTED)
[2019-09-23 17:40] VITALS: BP 122/85
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
--- NOTE | 2019-09-23 20:22 | EKG REPORT ---
SEVERITY:- ABNORMAL ECG - SINUS RHYTHM LEFT VENTRICULAR HYPERTROPHY : Confirmed by: Abigail Davila MD 23-Sep-2019 20:22:18
--- NOTE | 2019-09-24 12:58 | PSYCHOLOGICAL NOTE ---
Psych Note - Psych Note Date seen by psych provider: 09/23/19 Time seen by psych provider: 16:15 - [id number], 1800ish Psych Note: Presenting Problem: Patient is a 49 year old male who presented to the [facility] ED today via POV for alcohol intoxication and desire for detox. Patient identified he is in the ED "for medical clearance to go to [facility]." He stated he had been at [facility] and they sent him for the clearance. He identified he was at [facility] 1-2 weeks ago, they sent him to the hospital where he was admitted (medical documentation indicates this was accurate) and then he went back to [facility]. Patient acknowledged "they suggested I do follow up, they were going to link me to a 30 day program, I should have but didn't, I thought I could do it myself but I was wrong." He further stated how helpful [facility] was "they were nice, the treatment was good and they link to future help." He acknowledged he is unemployed, has no money and the only insurance he has is a card from [facility] that he was provided at his medical admit last week. He reported he stays in a camper in [place] [facility], his friend from [facility] [place] him to the ED today but left patient's belongings and went home and he noted his parents who live close to him and have his dog because he thought he was going into detox. He reported "yesterday or the other day when I had a seizure and fell down a flight of stairs hitting my head, I went to [facility] and had to get jean marie on the back of my head." Observed the jean marie about 1-2 inches vertically on back center of head. Patient stated prior to that it had been 5 years since he had a seizure. He further stated the seizures are related to alcohol withdrawal. Patient identified his last drink was this morning at 0300. Serum Alcohol Level was 399 upon arrival to the ED. Patient was alert and oriented to self, person, place, time and situation. Mood was euthymic with congruent affect. He denied SI/HI, said he wanted help and detox, and then made no statements or gestures during his hospital visit with the exception of attending nurse hearing him over the phone saying he was trying to do the right things and if discharged he guesses he would leave and slit his throat. Patient made no further mention of it and then did everything recommended to try to obtain medical detox, he even initiated asking for a [facility] number/pen/paper, started the phone call while in ED room and continued working with [facility] at discharge in order for them to try to get medical detox placement. All of that indicated a hope and desire for treatment/change and wanting to live. Patient did not appear to be responding to internal stimuli as evidenced by fair eye contact and answering questions appropriately when addressed. Conversational speech was within normal limits for rate, tone and prosody. Thought processes were linear. Intellectual abilities are estimated to be aver age. Insight, judgment and impulse control were fair as evidenced by following through with recommendations to use [facility] to assist with voluntary detox. Collateral: At 1705 spoke to Cathy ELLIOTT at [facility]. She stated patient was told they cannot treat him because they feel he needs medical detox. She further stated he had been given resources, was going to go to [facility] and had someone who was supposed to take him. She again stated they are unable to accept patient due to his need for medical detox. Attending Nurse informed this clinician she overheard patient on the phone saying "I was trying to do the right thing, to get help, to go to detox, I guess if they discharge me I'll leave and slit my throat." Patient did not make this statement or any others prior to or after his phone conversation. When this clinician went back to tell patient [facility] denied because they feel he needs medical detox and they cannot provide that he said "what do I do." Explained there are medical detox facilities and mobile crisis can assist with that placement. Informed patient mobile crisis would either do a phone screening/assessment or meet him at discharge, there might not be a bed right away it can take a couple days sometimes, and he would need transportation. He inquired about the [facility]CM number ad getting a pen and paper. Provided patient with the outpatient resource sheet which starred [facility] (explained how it is a call center, they will take information and then a qualified professional would call him back), documented that [facility] denied today due to need for medical detox and listed the 4 medical detox facilities [facility] would try to get patient into. He immediately used his cell phone to call [facility]. He was able to make initial contact and provide information so that at discharge he would sit in the lobby doing a phone assessment with the [facility] worker. Provided patient with a yellow envelope that had his labs and EKG (would be needed for voluntary detox placement). Attending Nurse coordinated with [facility] worker Jaimee and faxed the paperwork to her so they could begin placement efforts. Diagnosis: Patient desire for detox Alcohol Intoxication with Use Disorder Severe Impression/Plan: Patient is cleared from acute psychiatric services. He presented for medical clearance to go to [facility] for voluntary alcohol detox however they denied him due to need for medical detox which they do not provide. He denied SI/HI with exception of attending nurse overheard patient talking on his cell phone (prior to getting [facility] number) saying he was trying to do the right thing by getting detox and if he was discharged he guesses he would slit his throat. He said that only on the phone and then continued talking about wanting to get into detox, initiated asking about [facility] number and for pen and paper and then followed through with recommendation to utilize [facility] for assistance with medical detox placement. Lab work and EKG provided to patient and attending nurse faxed information to the [facility] worker Jaimee. Patient provided with the outpatient resource sheet which starred [facility] (explained how it is a call center, they will take information and then a qualified professional would call him back), documented that [facility] denied today due to need for medical detox and listed the 4 medical detox facilities [facility] would try to get patient into. He was going to the lobby for phone assessment/evaluation/screening from [facility]. All of his actions indicate a desire to live and wanting detox. Consulted with Dr. Clayton regarding the management and care of patient. ED Physician in agreement with recommendations.
== END 2019-09-23 20:18 | disposition home or self-care (01) ==
LOC: ER 14:07
DX: F10.10 Alcohol abuse, uncomplicated (principal); K70.9 Alcoholic liver disease, unspecified; D69.6 Thrombocytopenia, unspecified; I10 Essential (primary) hypertension; R56.9 Unspecified convulsions; Z79.899 Other long term (current) drug therapy
CPT/HCPCS: 36415; 80053; 80201; 80307; 81001; 85025; 93005; 93010; 99284

== ENCOUNTER 2019-09-23 22:05 | Emergency (ER) | payer OTHER ==
[2019-09-23] MEDS ORDERED: KETOROLAC TROMETHAMINE INJ/PF 30 MG/1 ML SDV IV ONE (22:43)
[2019-09-23] MEDS ORDERED: NORMAL SALINE 1000 ML 1,000 ML IV ONE (22:43)
[2019-09-23] MEDS ORDERED: MECLIZINE HCL 25 MG TABLET PO ONE (22:44)
[2019-09-23] MEDS ORDERED: ACETAMINOPHEN 325 MG TABLET PO ONE (22:49)
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
--- NOTE | 2019-09-23 23:39 | RADIOLOGY REPORT (SQ) ---
EXAM DESCRIPTION: Noncontrast CT head CLINICAL HISTORY: 49 years Male visual changes, headache TECHNIQUE: Noncontrast CT head. All CT scans at this facility use dose modulation, iterative reconstruction, and/or weight based dosing when appropriate to reduce radiation dose to as low as reasonably achievable. COMPARISON: September 01, 2019 FINDINGS: Rashid matter, white matter, ventricles, and cisterns are within normal limits. No acute hemorrhage or mass effect. Visualized portions of paranasal sinuses are clear. There is minimal nonspecific fluid within the bilateral mastoid air cells. Visualized portions of the calvarium are within normal limits. IMPRESSION: 1. No acute intracranial findings. If there is clinical concern for acute stroke, MRI brain should be considered as a more sensitive evaluation.
[2019-09-24 00:14] VITALS: BP 127/88
== END 2019-09-24 00:21 | disposition home or self-care (01) ==
LOC: ER 22:05
DX: S09.90XA Unspecified injury of head, initial encounter (principal); R56.9 Unspecified convulsions; R42 Dizziness and giddiness; F10.10 Alcohol abuse, uncomplicated; H53.8 Other visual disturbances; R51 Headache; X58.XXXA Exposure to other specified factors, initial encounter; Z79.899 Other long term (current) drug therapy; I10 Essential (primary) hypertension
CPT/HCPCS: 99284; 96360; 70450; J7030